=== PATIENT | male | born 1980 | race Caucasian/White ===

== ENCOUNTER 2016-07-26 05:37 | Emergency (ER) | payer BC ==
[~2016-07-26] VITALS: Ht 188 cm; Wt 87.5 kg
[2016-07-26 05:40] VITALS: Ht 188 cm; Wt 87.5 kg
--- NOTE | 2016-07-26 07:13 | RADRPT ---
PROCEDURE: CT Brain without contrast. CLINICAL INDICATION: Trauma TECHNIQUE: Axial images from the skull base through the vertex without IV contrast. Multiplanar r eformatted images were made. Images were reviewed on a PACS workstation. The CTDIvol is 43.68 mGy and the DLP is 720.23 mGycm. One or more of the following dose reduction techniques were used: auto mated exposure control, adjustment of the mA and/or kV according to patient size, or use of iterativ e reconstruction technique. COMPARISON: None. FINDINGS: The ventricles and cisterns are normal for age. There is no evidence for territorial infarction or intracranial hemorrhage. No mass or midline shift is seen. No extra-axial fluid collection is seen . The visualized paranasal sinuses and mastoids are clear. No calvarial fracture is seen. IMPRESSION: No definite acute intracranial abnormality. RPTAT: [facility] Physician Nikita Date Time Electronically viewed and signed by Physician Nikita on 07/26/2016 07:12 [email or web address]/
--- NOTE | 2016-07-26 07:28 | ERD ---
ER Documentation Chief Complaint Date/Time DATE: 07/26/16 TIME: 07:25 Chief Complaint HIT HEAD WHILE EXERCISING YESTERDAY. WOKE UP DIZZY, NAUSEA, VISION CHANGE HPI Patient is a 36-year-old male who yesterday was exercising and he accidentally hit his head against the wall. He denies any loss of consciousness. He states initially he felt fine and he had no pain or dizziness but then this morning he woke up and he had dizziness. The dizziness is worse with change of position of his head. He admits to a mild nausea and mild headache. Denies vomiting. No blurry or double vision. Has not taken any medications. ROS All systems reviewed and are negative except as per history of present illness. PMhx/Soc Medical and Surgical Hx: pt denies Medical Hx, pt denies Surgical Hx Hx Alcohol Use: No Hx Tobacco Use: No Smoking Status: Never smoker FmHx Family History: No diabetes Physical Exam Vitals Vital Signs Date Time Temp Pulse Resp B/P Pulse Ox O2 Delivery O2 Flow Rate FiO2 07/26/16 05:40 97.2 53 18 142/64 99 Physical Exam General: well developed, well nourished, alert, nontoxic, no distress Head: normocephalic, atraumatic Eyes: PERRL, normal conjunctiva, extraocular movements intact Neck: Supple, nontender, no lymphadenopathy, no midline tenderness Respiratory: Clear to auscaultation bilaterally, speaks in full sentences, no use of accesory muscles or labored breathing, no rales, ronchi, or wheezing Cardiovascular: RRR, No murmurs Neuro: CN 2-12 intact, normal speech, 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 He is well-appearing and he has a normal neurological examination. CT scan showed no evidence of acute intracranial traumatic injury. Patient was given copy of the report and counseled on signs and symptoms regarding head injuries to be concerned about. Recommended this patient follow up with her primary care doctor within 48 hours or return to the emergency room for any worsening of symptoms. However this time I do believe there is suitable for outpatient management. I answered all their questions and they agreed with the plan and were discharged home. Departure Diagnosis: Primary Impression: Acute head injury Condition: Stable Patient Instructions: HEAD INJURY with Wake-Up (Adult) Additional Instructions: Call your primary care doctor TOMORROW for an appointment during the next 1-2 days.See the doctor sooner or return here if your condition worsens before your appointment time. BERNA LARSON PA-C Jul 26, 2016 07:28
== END 2016-07-26 08:03 | disposition home or self-care (01) ==
LOC: FTE 05:37
DX: S09.90XA Unspecified injury of head, initial encounter (principal); R42 Dizziness and giddiness; W22.8XXA Striking against or struck by other objects, initial encounter; Y92.9 Unspecified place or not applicable
CPT/HCPCS: 70450